=== PATIENT | female | born 1965 | race Hispanic/Latino ===

== ENCOUNTER 2025-01-04 10:28 | Emergency (ER) | payer BC ==
[~2025-01-04] VITALS: Ht 157.5 cm; Wt 73.9 kg
[2025-01-04 11:03] LABS: GLUCOSE, URINE (UA) NEGATIVE (NEGATIVE); LEUKOCYTE ESTERASE ,URINE 500 Leu/uL (NEGATIVE); NITRATE,URINE NEGATIVE (NEGATIVE); OCCULT BLOOD,URINE MODERATE (NEGATIVE)
[2025-01-04 11:05] LABS: ADD UA MICROSCOPIC YES; APPEARANCE,URINE HAZY (CLEAR)
[2025-01-04 11:11] LABS: SQUAMOUS EPITHELIAL CELL,UR RARE /HPF (0-2)
[2025-01-04 11:34] LABS: IMMATURE GRANULOCYTE ABSOLUTE 0.03 K/uL (0-1); NUCLEATED RED BLOOD CELLS 0.0 % (0.0-0.19); PLATELET COUNT (AUTO) 273 K/uL (130-400); RED BLOOD CELL COUNT(AUTO) 4.49 MIL/uL (4.00-5.50); RED CELL DISTRIBUTION WIDTH 12.5 % (11.0-15.5); WHITE BLOOD COUNT (AUTO) 10.2 K/uL (4.8-10.8)
[2025-01-04 11:39] LABS: CREATININE 0.6 mg/dL (0.5-1.0); GLOMERULAR FILTR. RATE CALC 103.0 mL/min (>90); GLUCOSE,RANDOM 99.0 mg/dL (70-105); SODIUM SERUM 136.0 mmol/L (136-145); UREA NITROGEN, BLOOD 12.0 mg/dL (7-18)
[2025-01-04] MEDS: 0.9%NACL 1000ML 1,000 ML IV STA (12:33)
--- NOTE | 2025-01-04 12:57 | HMCIMG ---
EXAM: CT Abdomen and Pelvis Without IV contrast CLINICAL HISTORY: quentin flank pain TECHNIQUE: Axial computed tomography images of the abdomen and pelvis without intravenous contrast. CONTRAST: No IV contrast. COMPARISON: None provided. FINDINGS: LUNG BASES: The lung bases appear clear. No pleural effusions are seen. LIVER: Unremarkable. GALLBLADDER AND BILE DUCTS: The gallbladder appears within normal limits. No radioopaque gallstones are seen. No biliary ductal dilatation is evident. PANCREAS: Unremarkable. SPLEEN: Unremarkable. ADRENAL GLANDS: Unremarkable. KIDNEYS, URETERS, AND BLADDER: Mild dilatation of the right ureter and renal pelvis. The kidneys appear within normal limits. No urinary calculi are seen. STOMACH AND BOWEL: Unremarkable appearance of the stomach and bowel. No evidence of bowel obstruction. No evidence suggesting enteritis or colitis. APPENDIX: No evidence of acute appendicitis on CT examination. PERITONEUM: No free fluid. No free air. LYMPH NODES: No lymphadenopathy is evident. REPRODUCTIVE: Unremarkable as visualized. VASCULATURE: No evidence of abdominal aortic aneurysm. BONES: Grade I anterolisthesis of L4 over L5 vertebra. Degenerative changes in the visualized spine in the form of marginal osteophytes and degenerative discs at multiple lumbar levels. No aggressive appearing osseous lesion. No acute osseous pathology evident. IMPRESSION: 1. Mild right hydronephrosis and hydroureter without visible urinary calculi. Consider CT urography for further evaluation. /[place]
[2025-01-04] MEDS ORDERED: SULF1TAB42 PO (13:26)
--- NOTE | 2025-01-04 13:26 | ERN ---
ED Note History of Present Illness Stated Complaint: UTI SX Chief Complaint: Painful Urination Time Seen by MD: 10:36 Time Seen by Midlevel: 10:40 Dictation: 59-year-old female coming in with complaints of dysuria and bilateral flank pain for two days. Denies any fever, nausea or vomiting. Denies any medical or surgical history. Allergies: Coded Allergies: No Known Drug Allergies (Unverified Allergy, Unknown, 01/04/25) Past Medical History Past Medical History: No Pertinent History Additional Past Medical Hx: denies pmhx Surgical History: Other Surgical History Other: ovary removal Review of System Dictation Constitutional: Negative for fever,chills, and weight loss Eyes: Negative for injury, pain,redness, and discharge ENT: Negative for injury,pain or swelling Cardiovascular: Negative for chest pain, palpitations, and edema Respiratory: Negative for shortness of breath, cough, and wheezing, Abdomen/GI: Negative for abdominal pain, nausea, vomiting, diarrhea, and cons tipation Back: Negative for injury and pain : Complaining of dysuria MS/Extremity: Negative for injury and deformity Skin: Negative for rash, and discoloration Neuro: Negative for headache, weakness, numbness, tingling, and seizure Psych: Negative for suicide ideation, homicidal ideation, and hallucinations Review of Systems: was completed Initial Vital Sign VS Vital Signs Date Time Temp Pulse Resp B/P (MAP) Pulse Ox O2 Delivery O2 Flow Rate FiO2 01/04/25 10:30 97.3 60 16 164/74 100 Room Air 0 01/04/25 10:33 21 Physical Exam Dictation General: awake, alert, NAD Head/Face: Normocephalic, atraumatic Eyes: PERRL, EOMI, vision at baseline ENT: oral cavity clear, TMs clear, no signs of infection Neck: Trachea midline, supple, no nuchal rigidity Cardiovascular: RRR, normal S1/S2, No MRGs, no JVD Respiratory: CTAB, no respiratory distress, No rales or wheezes Abdomen: Soft, non-tender, non-distended, normal bowel sounds, no guarding or rebound. Mild CVA tenderness Skin: Warm, dry, normal turgor, no rash MS/Extremity: Pulses equal, no cyanosis, neurovascular intact, FROM Neuro: COAx4, GCS 15, strength 5/5, CN 2-12 intact, normal cerebellar exam, normal gait, Psych: Normal behavior, mood, and affect normal Results (Laboratory/Radiology) Laboratory/Radiology Laboratory Tests Test 01/04/25 10:35 01/04/25 11:22 Urine Color YELLOW (YELLOW) Urine Appearance HAZY (CLEAR) Urine pH 6.5 (5.0-8.0) Urine Specific [place] 1.010 (1.001-1.031) Urine Protein 20 mg/dL (NEGATIVE) H Urine Glucose (UA) NEGATIVE mg/dL (NEGATIVE) Urine Ketones NEGATIVE mg/dL (NEGATIVE) Urine Occult Blood MODERATE (NEGATIVE) H Urine Nitrate NEGATIVE (NEGATIVE) Urine Bilirubin NEGATIVE mg/dL (NEGATIVE) Urine Urobilinogen 0.2 mg/dL (0.2-1.0) Urine Leukocyte Esterase 500 Tricia/uL (NEGATIVE) H Urine RBC 6-10 /HPF (0-1) H Urine WBC TNTC /HPF (0-1) H Urine Squamous Epithelial Cells RARE /HPF (0-2) Urine Bacteria FEW /HPF (None Seen) White Blood Count 10.2 K/uL (4.8-10.8) Red Blood Count 4.49 MIL/uL (4.00-5.50) Hemoglobin 14.1 g/dL (12.0-16.0) Hematocrit 41.8 % (36-48) Mean Corpuscular Volume 93.1 fL (79-99) Mean Corpuscular Hemoglobin 31.4 pg (27.0-33.0) Mean Corpuscular Hemoglobin Concent 33.7 g/dL (32.0-36.0) Red Cell Distribution Width 12.5 % (11.0-15.5) Platelet Count 273 K/uL (130-400) Mean Platelet Volume 9.8 fL (7.5-10.5) Immature Granulocyte % (Auto) 0.3 % (0-1) Neutrophils (%) (Auto) 65.9 % (40.0-77.0) Lymphocytes (%) (Auto) 22.4 % (21.0-51.0) Monocytes (%) (Auto) 5.0 % (3.0-13.0) Eosinophils (%) (Auto) 5.8 % (0.0-8.0) Basophils (%) (Auto) 0.6 % (0.0-5.0) Neutrophils # (Auto) 6.8 K/uL (1.8-7.7) Lymphocytes # (Auto) 2.3 K/uL (1.0-4.8) Monocytes # (Auto) 0.5 K/uL (0.1-1.0) Eosinophils # (Auto) 0.59 K/uL (0.00-0.70) Basophils # (Auto) 0.06 K/uL (0.00-0.20) Absolute Immature Granulocyte (auto 0.03 K/uL (0-1) Nucleated Red Blood Cells 0.0 % (0.0-0.19) Sodium Level 136 mmol/L (136-145) Potassium Level 4.1 mmol/L (3.5-5.1) Chloride Level 101 mmol/L (101-111) Carbon Dioxide Level 30 mmol/L (21-32) Blood Urea Nitrogen 12 mg/dL (7-18) Creatinine 0.6 mg/dL (0.5-1.0) Glomerular Filtration Rate Calc 103 mL/min (>90) Random Glucose 99 mg/dL (70-105) Total Calcium 8.8 mg/dL (8.5-10.1) Labs Reviewed?: Yes CT Scan Comment: [place] [id number] IMAGING REPORT Signed PATIENT: CLEMENTINE SHEPARD MR#: [id number] : 1965 SEX: F AGE: 59 LOCATION: [facility] ORDER [id number] STATUS: REG ER REPORT#: [id number] SERVICE [id number] REASON: quentin flank pain ORDERING PHYSICIAN: MARTHA MARTINEZ NP PROCEDURE: ABD PEL WO - CT ABDOMEN/PELVIS W/O CONTRAST EXAM: CT Abdomen and Pelvis Without IV contrast CLINICAL HISTORY: quentin flank pain TECHNIQUE: Axial computed tomography images of the abdomen and pelvis without intravenous contrast. CONTRAST: No IV contrast. COMPARISON: None provided. FINDINGS: LUNG BASES: The lung bases appear clear. No pleural effusions are seen. LIVER: Unremarkable. GALLBLADDER AND BILE DUCTS: The gallbladder appears within normal limits. No radioopaque gallstones are seen. No biliary ductal dilatation is evident. PANCREAS: Unremarkable. SPLEEN: Unremarkable. ADRENAL GLANDS: Unremarkable. KIDNEYS, URETERS, AND BLADDER: Mild dilatation of the right ureter and renal pelvis. The kidneys appear within normal limits. No urinary calculi are seen. STOMACH AND BOWEL: Unremarkable appearance of the stomach and bowel. No evidence of bowel obstruction. No evidence suggesting enteritis or colitis. APPENDIX: No evidence of acute appendicitis on CT examination. PERITONEUM: No free fluid. No free air. LYMPH NODES: No lymphadenopathy is evident. REPRODUCTIVE: Unremarkable as visualized. VASCULATURE: No evidence of abdominal aortic aneurysm. BONES: Grade I anterolisthesis of L4 over L5 vertebra. Degenerative changes in the visualized spine in the form of marginal osteophytes and degenerative discs at multiple lumbar levels. No aggressive appearing osseous lesion. No acute osseous pathology evident. IMPRESSION: 1. Mild right hydronephrosis and hydroureter without visible urinary calculi. Consider CT urography for further evaluation. /[place] DICTATED BY: PRAVEEN KWOK Jr., MD DATE: 01/04/25 135 ELECTRONICALLY SIGNED BY: PRAVEEN KWOK Jr., MD DATE: 01/04/25 135 ED Course ED Course Orders Procedure Category Date Status Time Urinalysis Profile LAB 01/04/25 Complete 10:47 Cbc With Differential LAB 01/04/25 Complete 10:57 Basic Metabolic Panel LAB 01/04/25 Complete 10:57 Ct Abdomen/Pelvis W/O CT 01/04/25 Resulted Contrast 10:57 Culture Urine JANINE 01/04/25 In Process 11:06 0.9%Nacl 1000ml (Ns PHA 01/04/25 Complete 1000ml) 12:10 Ketorolac PHA 01/04/25 Complete Tromethamine 15mg/Ml 12:10 Ceftriaxone 1g Vial PHA 01/04/25 Complete (Rocephine 1g Inj) 12:10 Current Medications Medications (Trade) Dose Ordered Sig/Maye Route PRN Reason Start Time Stop Time Status Last Admin Dose Admin Ceftriaxone Sodium (ROCEphine 1G INJ) 1 gm ONCE STAT IVPB 01/04/25 12:10 01/04/25 12:13 DC 01/04/25 12:33 Ketorolac Tromethamine (toRADol) 15 mg ONCE STAT IV 01/04/25 12:10 01/04/25 12:13 DC 01/04/25 12:33 Sodium Chloride 1,000 ml @ 1,000 mls/hr Q1H STAT IV 01/04/25 12:10 01/04/25 13:09 DC 01/04/25 12:33 Vital Signs Date Time Temp Pulse Resp B/P (MAP) Pulse Ox O2 Delivery O2 Flow Rate FiO2 01/04/25 10:33 97.3 60 16 164/74 100 Room Air* 0 21 01/04/25 10:30 97.3 60 16 164/74 100 Room Air 0 Medical Decision Making MDM MDM: 59-year-old female coming in with complaints of dysuria and bilateral flank pain for two days. Denies any fever, nausea or vomiting. Denies any medical or surgical history. CBC shows no leukocytosis, no anemia, no thrombocytopenia. Chemistry unremarkable. Normal kidney function. UA shows evidence of urinary tract infection with WBC count to numerous to count. CT scan of the abdomen and pelvis shows mild right hydronephrosis and hydroureter without visible urinary calculi. Patient received fluids, pain medication and Rocephin. Patient will be discharged with antibiotics to treat pyelonephritis. Discussed findings with the patient. On reassessment she states she feels better after medications. Educated to follow up with PCP in 1-2 days. Educated on red flag symptoms of when to return back to the emergency room like fever, severe flank pain, nausea or vomiting or diarrhea. Differential diagnosis: UTI, pyelonephritis, kidney stone, Rationale: Tests considered and ordered secondary to shared decision making include: Previous outside records reviewed: Old ER visits. Risk of complication and/or morbidity or mortality of patient management: None Medications-Per medication reconciliation Need for hospitalization: Patient does not meet criteria for hospitalization. Need for emergency major/minor surgery: No There are no social concerns with this patient. Prescription drug management Prescriptions will include symptomatic care Patient's prior external medical records from other ER visits were reviewed by me as indicated. Prior testing and results from previous visits were reviewed. Prior tests were taken into account with medical decision making and resource utilization, independent historian/historians were used to obtain complete medical history. I independently interpreted the test that were performed, results were reviewed by me and considered findings on radiology if ordered. Medical management and examination interpretation discussions were had by me with other qualified healthcare professionals as indicated for the patient's care. DX & DISP Disposition: Discharge Departure Impression: Primary Impression: Pyelonephritis Condition: Stable Scripts Sulfamethoxazole/Trimethoprim (Bactrim Ds Tablet) 800 Mg-160 Mg Tablet 1 TAB PO BID for 7 Days, #14 TAB 0 Refills Prov: MARTHA MARTINEZ NP 01/04/25 Additional Instructions: Take the antibiotic as prescribed. You can take Tylenol or Motrin [id number] for pain control. If after starting your antibiotics you began with a worsening symptoms like fever, nausea and vomiting return back to the emergency room. Referrals: NISHANT PACE MD (PCP) Time of Disposition: 13:25 I have reviewed the case, and I agree with, Diagnosis and Plan MARTHA MARTINEZ NP Jan 04, 2025 13:26
[2025-01-04 13:32] VITALS: BP 142/70; PULSE 62; RESP 16; TEMP 97.3; O2SAT 100
== END 2025-01-04 13:35 | disposition home or self-care (01) ==
LOC: EDH 10:28
DX: N13.6 Pyonephrosis (principal); Z90.721 Acquired absence of ovaries, unilateral
CPT/HCPCS: 99284; 74176; 96374; 96375; 80048; 85025; 87086 ×2; 87186; 81001; 36415; J1885; J7030; J0696